=== PATIENT | male | born 1995 | race Caucasian/White ===

== ENCOUNTER 2017-11-26 16:54 | Emergency (ER) | payer OTHER ==
[2017-11-26] MEDS: HYDROCODONE/APAP (5/325) TAB PO (17:38)
[2017-11-26] MEDS: IBUPROFEN 600 MG TAB PO (17:38)
== END 2017-11-26 20:20 | disposition home or self-care (01) ==
LOC: FTE 16:54
DX: S19.9XXA Unspecified injury of neck, initial encounter (principal); S39.92XA Unspecified injury of lower back, initial encounter; S09.90XA Unspecified injury of head, initial encounter; R51 Headache; V86.05XA Driver of 3- or 4- wheeled all-terrain vehicle (ATV) injured in traffic accident, initial encounter
CPT/HCPCS: 70450; 72072; 72100; 72125; 73030-RT; 99285-25

== ENCOUNTER 2018-02-11 17:23 | Emergency (ER) | payer OTHER ==
[2018-02-11] MEDS: DICYCLOMINE 10 MG CAP PO (19:01)
[2018-02-11] MEDS: LOPERAMIDE 2 MG CAP PO (19:01)
[2018-02-11] MEDS: ONDANSETRON (ODT) 4 MG TAB ODT (19:01)
[2018-02-11 19:10] LABS: ADD MAN DIFF? NO
[2018-02-11 19:15] LABS: BASOPHIL # 0.1 10^3/ul (0.0-0.1); BASOPHILS % 0.5 % (0.0-2.0); EOSINOPHILS # 0.2 10^3/ul (0.0-0.5); EOSINOPHILS % 1.8 % (0.0-7.0); HEMATOCRIT 41.1 % (42.0-52.0); HEMOGLOBIN 14.1 g/dl (14.0-18.0); LYMPHOCYTES # 2.8 10^3/ul (0.8-2.9); LYMPHOCYTES % 22.2 % (18.0-55.0); MEAN CORPUSCULAR HEMOGLOBIN 31.3 pg (29.0-33.0); MEAN CORPUSCULAR HGB CONC 34.3 g/dl (32.0-37.0); MEAN CORPUSCULAR VOLUME 91.3 fl (72.0-104.0); MEAN PLATELET VOLUME 10.3 fl (7.4-10.4); MONOCYTE # 1.2 10^3/ul (0.3-0.9); MONOCYTES % 9.2 % (0.0-13.0); NEUTROPHIL # 8.2 10^3/ul (1.6-7.5); NEUTROPHILS % 65.7 % (30.0-74.0); PLATELET COUNT 373 10^3/UL (140-415); RED CELL DISTRIBUTION WIDTH 13.2 % (11.5-14.5)
[2018-02-11 19:15] LABS: WHITE BLOOD COUNT 12.5 10^3/ul (4.8-10.8)
[2018-02-11 19:28] LABS: ADD UMIC YES; UR ASCORBIC ACID 20 mg/dL (NEGATIVE); UR BACTERIA FEW /HPF (NONE SEEN); UR BILIRUBIN (Dip) NEGATIVE (NEGATIVE); UR BLOOD (Dip) NEGATIVE (NEGATIVE); UR CLARITY CLOUDY (CLEAR); UR COLOR YELLOW (YELLOW); UR GLUCOSE (Dip) NEGATIVE (NEGATIVE); UR KETONES (Dip) NEGATIVE (NEGATIVE); UR LEUKOCYTE ESTERASE (Dip) 3+ Leu/ul (NEGATIVE); UR NITRITE (Dip) NEGATIVE (NEGATIVE); UR RBC 19 /HPF (0-5); UR SPECIFIC GRAVITY (Dip) 1.025 (1.003-1.030); UR TOTAL PROTEIN (Dip) NEGATIVE (NEGATIVE); UR UROBILINOGEN (Dip) NEGATIVE (NEGATIVE); UR WBC > 182 /HPF (0-5)
[2018-02-11 19:37] LABS: ALANINE AMINOTRANSFERASE 24 IU/L (13-69); ALBUMIN 4.8 g/dl (3.3-4.9); ALBUMIN/GLOBULIN RATIO 1.54; ALKALINE PHOSPHATASE 74 IU/L (42-121); ANION GAP 16 (8-16); ASPARTATE AMINO TRANSFERASE 24 IU/L (15-46); BILIRUBIN,INDIRECT 0.7 mg/dl (0-1.1); BILIRUBIN,TOTAL 0.7 mg/dl (0.2-1.3); BLOOD UREA NITROGEN 17 mg/dl (7-20); CALCIUM 9.6 mg/dl (8.4-10.2); CARBON DIOXIDE 22 mmol/L (21-31); CHLORIDE 108 mmol/L (97-110); CREATININE 0.87 mg/dl (0.61-1.24); GLUCOSE 99 mg/dl (70-220); LIPASE 51 U/L (23-300); POTASSIUM 4.3 mmol/L (3.5-5.1); SODIUM 142 mmol/L (135-144); TOTAL PROTEIN 7.9 g/dl (6.1-8.1)
== END 2018-02-11 21:07 | disposition home or self-care (01) ==
LOC: FTE 21:07
DX: N39.0 Urinary tract infection, site not specified (principal)
CPT/HCPCS: 36415; 74176; 80053; 81001; 83690; 85025; 99284-25

== ENCOUNTER 2018-02-19 11:52 | Emergency (ER) | payer OTHER ==
[2018-02-19] MEDS: AZITHROMYCIN 250 MG TAB PO (12:54)
[2018-02-19] MEDS: CEFTRIAXONE 250 MG INJ IM (12:55)
[2018-02-19] MEDS: LIDOCAINE 2% (MDV) 20 ML INJ INJ (13:00)
== END 2018-02-19 14:24 | disposition home or self-care (01) ==
LOC: FTE 14:24
DX: N45.3 Epididymo-orchitis (principal)
CPT/HCPCS: 76870; 87086; 87591; 96372; 99285-25

== ENCOUNTER 2018-10-02 10:26 | Emergency (ER) | payer OTHER ==
[2018-10-02] MEDS: DEXAMETHASONE 10 MG/ML 1 ML INJ IM (13:01)
[2018-10-02] MEDS: KETOROLAC 30 MG INJ IM (13:02)
[2018-10-02] MEDS: METHOCARBAMOL 750 MG TAB PO (13:17)
== END 2018-10-02 14:17 | disposition home or self-care (01) ==
LOC: FTE 10:26
DX: M54.42 Lumbago with sciatica, left side (principal); M25.552 Pain in left hip; R21 Rash and other nonspecific skin eruption
CPT/HCPCS: 72100; 96372; 99284-25